=== PATIENT | female | born 1970 | race Caucasian/White ===

== ENCOUNTER 2016-12-18 23:59 | Emergency (ER) | payer OTHER, BC ==
--- NOTE | 2016-12-19 00:23 | ED PDOC ---
Arrival/HPI - General Chief Complaint: Lower Extremity Problem/Injury Time Seen by Provider: 12/19/16 00:01 Historian: Patient - History of Present Illness Narrative History of Present Illness (Text): 12/19/16 00:20 46 y/o female, no significant pmh, nkda, c/o lt. knee locking and pain x 2 hours. Pt. stated that she was sitting down, suddenly feel the left knee with locking pain, painful to move, no leg or calf pain/cramp, no numbness or tingling, no headache or night sweat, no dizziness, no other medical or psychological complaints. Past Medical History - Provider Review Nursing Documentation Reviewed: Yes - Psychiatric Hx Substance Use: No Family/Social History - Physician Review Nursing Documentation Reviewed: Yes Family/Social History: Unknown Family HX Smoking Status: no Hx Alcohol Use: No Hx Substance Use: No Allergies/Home Meds Allergies/Adverse Reactions: Allergies No Known Allergies Allergy (Verified 12/19/16 00:08) Review of Systems - Review of Systems Constitutional: absent: Fatigue, Fevers Eyes: absent: Vision Changes ENT: absent: Hearing Changes Respiratory: absent: SOB, Cough Cardiovascular: absent: Chest Pain Gastrointestinal: absent: Abdominal Pain, Nausea, Vomiting Musculoskeletal: Arthralgias, Joint Swelling. absent: Back Pain, Neck Pain, Myalgias Psychiatric: absent: Anxiety, Depression, Suicidal Ideation Physical Exam Vital Signs Reviewed: Yes Vital Signs Temp Pulse Resp BP Pulse Ox 12/19/16 00:03 98.1 F 86 18 128/70 99 Temperature: Afebrile Blood Pressure: Normal Pulse: Regular Respiratory Rate: Normal Appearance: Positive for: Well-Appearing, Non-Toxic, Uncomfortable Pain Distress: Severe Mental Status: Positive for: Alert and Oriented X 3 - Systems Exam Head: Present: Atraumatic, Normocephalic Pupils: Present: PERRL Extroacular Muscles: Present: EOMI Conjunctiva: Present: Normal Mouth: Present: Moist Mucous Membranes Neck: Present: Normal Range of Motion Respiratory/Chest: Present: Clear to Auscultation, Good Air Exchange. No: Respiratory Distress, Accessory Muscle Use Cardiovascular: Present: Regular Rate and Rhythm, Normal S1, S2. No: Murmurs Abdomen: Present: Normal Bowel Sounds. No: Tenderness, Distention, Peritoneal Signs Back: Present: Normal Inspection Upper Extremity: Present: Normal Inspection. No: Cyanosis, Edema Lower Extremity: Present: Normal Inspection, Other (Lt. knee: +swelling, no tenderness, locked noted at 45 degrees, limited ROM due to the locking position , sensation intact, motor 5/5, +DPPT pulses, capillary refill< 2 secondsd, neurovascular intact. ). No: Edema Neurological: Present: GCS=15, Speech Normal, Motor Func Grossly Intact, Memory Normal Skin: Present: Warm, Dry, Normal Color. No: Rashes Psychiatric: Present: Alert, Oriented x 3, Normal Insight, Normal Concentration Medical Decision Making ED Course and Treatment: 12/19/16 00:22 -Knee manipulated by me with massaging the femoral/patellar and gastrocnemius muscle along the anterior aspect of the knee which the knee is able to be flex. -[place]/valium -CT lt. knee. -huang wrap and knee immmobilizer applied by me. Clinically suspecting about meniscus injury. 12/19/16 02:16 -CT show no acute findings. -Pain significantly decreased with the medication given in the ER. -Discharge home with naproxen, huang wrap, knee immobilizer, crutches, no gym or exercise, non-weigh bearing, you will need outpatient MRI of the left knee with your own pmd and orthopedic, return to the ER for any new or worsening signs or symptoms. - RAD Interpretation Radiology Orders: 12/19/16 00:19 KNEE WITHOUT CONTRAST LEFT [CT] Stat FINDINGS: There is no acute left knee fracture, dislocation, or suprapatellar joint effusion. No aggressive osseous lesion. Joint spaces are preserved. No soft tissue mass or fluid collection. IMPRESSION: No acute findings in the left knee. Thank you for allowing us to participate in the care of your patient. Dictated and Authenticated by: Ashley Hensley MD 12/19/2016 2:01 AM Eastern Time ([place] & [place]) Director Diabetes: Radiologist - Medication Orders Current Medication Orders: Discontinued Medications Diazepam (Valium) 5 mg PO ONCE ONE PRN Reason: Protocol Stop: 12/19/16 00:16 Last Admin: 12/19/16 00:54 Dose: 5 mg Ketorolac Tromethamine (Toradol) 60 mg IM STAT STA Stop: 12/19/16 00:15 Last Admin: 12/19/16 00:54 Dose: 30 mg Comments: adm 30mg as per patient request. Tasia LOZADA aware - PA / PHYTOPATHOLOGIST / Resident Statement MD/DO has reviewed & agrees with the documentation as recorded. Disposition/Present on Arrival - Present on Arrival Any Indicators Present on Arrival: No History of DVT/PE: No History of Uncontrolled Diabetes: No Urinary Catheter: No History of Decub. Ulcer: No History Surgical Site Infection Following: None - Disposition Have Diagnosis and Disposition been Completed?: Yes Diagnosis: Locking knee, Knee pain Disposition: HOME/ ROUTINE Disposition Time: 00:23 Patient Plan: Discharge Patient Problems: Current Active Problems Problem Status Onset Locking knee Acute Condition: IMPROVED Additional Instructions: Discharge home with naproxen, huang wrap, knee immobilizer, crutches, no gym or exercise, non-weigh bearing, you will need outpatient MRI of the left knee with your own pmd and orthopedic, return to the ER for any new or worsening signs or symptoms. Prescriptions: Naproxen 500 mg PO BID PRN #28 tab PRN Reason: Other Referrals: Camila Maria MD [Primary Care Provider] - Follow up with primary Scott Gaffney MD [Staff Provider] - Follow up with primary Forms: WORK NOTE
[2016-12-19 02:41] VITALS: O2SAT 96
[2016-12-19 02:42] VITALS: BP 136/86; PULSE 84; RESP 16; TEMP 98.1
--- NOTE | 2016-12-19 08:54 | CT ---
PROCEDURE: CT of the left knee without contrast HISTORY: lt. knee locked and pain COMPARISON: TECHNIQUE: CT of the left knee was performed in the axial plane with sagittal and coronal reconstructions FINDINGS: There is no evidence of fracture or dislocation. There is no joint effusion. There are no bony abnormalities seen. There are no degenerative changes. The report concurs with the preliminary [facility] report IMPRESSION: Negative study
== END 2016-12-19 02:45 | disposition home or self-care (01) ==
LOC: ED 23:59 → EROBSV 12-19 02:03 → UNDOADMOB 12-19 02:03 → ED 12-19 02:45
DX: M25.562 Pain in left knee (principal)
CPT/HCPCS: 73700; 96372; 99284; J1885

== ENCOUNTER 2018-10-11 10:22 | Outpatient (CLI) | payer OTHER | END 2018-10-11 10:23 | disposition home or self-care (01) | LOC: LAB 10:22 ==